=== PATIENT | female | born 1960 | race Caucasian/White ===

== ENCOUNTER 2017-04-28 11:21 | Emergency (ER) | payer OTHER ==
[~2017-04-28] VITALS: Ht 160 cm; Wt 80.0 kg
[2017-04-28] MEDS ORDERED: VITAMIN D22000 UNIT PO (11:50)
[2017-04-28] MEDS ORDERED: LASIX20 MG PO (11:50)
[2017-04-28] MEDS ORDERED: [UNRECOGNIZED DRUG - OTHER] PO (11:51)
[2017-04-28] MEDS ORDERED: ASCORBIC ACID500 M3 PO (11:51)
[2017-04-28] MEDS ORDERED: CIPRO750 MG PO (11:52)
[2017-04-28] MEDS ORDERED: METRONIDAZOLE500 MG PO (11:52)
[2017-04-28] MEDS ORDERED: ZOFRAN4 MG PO (11:53)
[2017-04-28] MEDS ORDERED: DICYCLOMINE HCL10 MG PO (11:53)
[2017-04-28 12:37] LABS: MCH 30.4 PG (29.0-34.0); MEAN PLAT.VOLUME 11.9 uM^3 (9.5-12.4); PLATELET COUNT 189 K/uL (156-360); RBC DIS.WIDTH-CV 12.5 % (11.8-14.6); RBC DIS.WIDTH-SD 43.6 % (39-53); RED BLOOD COUNT 4.21 M/uL (3.80-5.20); WHITE BLOOD COUNT 6.5 K/uL (4.1-10.2)
[2017-04-28 13:11] LABS: ADD MIUA? YES; BILIRUBIN NEGATIVE; BLOOD NEGATIVE; COLOR YELLOW ((YELLOW)); GLUCOSE (STRIP) NEGATIVE; KETONES NEGATIVE; LEUKOCYTES TRACE; NITRITE NEGATIVE; PROTEIN (STRIP) NEGATIVE; SPECIFIC GRAVITY 1.013 (1.000-1.030); UROBILINOGEN 0.2 MG/DL (0.2-1.0)
[2017-04-28 13:18] LABS: CHLORIDE 105 mEq/L (99-109); SODIUM 140 mEq/L (136-147)
[2017-04-28 13:19] LABS: BACTERIA NONE SEEN /HPF; EPITHELIAL CELLS RARE /HPF; MUCUS NONE SEEN /LPF; RED BLOOD CELLS 0-5 /HPF (0-5); WHITE BLOOD CELLS 0-5 /HPF (0-5)
[2017-04-28 13:20] LABS: GLUCOSE 89 mg/dL (70-99)
[2017-04-28 13:21] LABS: ANION GAP 11 MEQ/L (2-14)
[2017-04-28 13:22] LABS: TOTAL BILIRUBIN 0.2 mg/dL (0.0-1.0)
[2017-04-28 13:23] LABS: ALKALINE PHOSPHATASE 67 IU/L (3-129)
[2017-04-28 13:24] LABS: GFR ESTIMATE (CALCULATED) > 59 mL/min/
[2017-04-28 13:25] LABS: UREA NITROGEN (BUN) 13 mg/dL (9-23)
[2017-04-28 13:27] LABS: LIPASE 19 U/L (1.0-51.0)
[2017-04-28] MEDS ORDERED: ZOFRAN ODT4 MG PO (15:14)
[2017-04-28 15:32] VITALS: BP 121/67
== END 2017-04-28 15:35 | disposition home or self-care (01) ==
LOC: EME 11:21
PROVIDERS: Nurse Practitioner Family
DX: K57.92 Diverticulitis of intestine, part unspecified, without perforation or abscess without bleeding (principal); K63.89 Other specified diseases of intestine
CPT/HCPCS: 74177; 80053; 81003; 83605; 83690; 85027; 87040; 99281; 99284; J7040